=== PATIENT | female | born 1960 | race African-American/Black ===

== ENCOUNTER 2016-07-04 15:37 | Emergency (ER) | payer OTHER ==
[~2016-07-04] VITALS: Ht 162.6 cm; Wt 81.6 kg
[2016-07-04 16:03] VITALS: BP 146/81
[2016-07-04] MEDS ORDERED: Ketorolac 60mg Inj IM ONE (16:30)
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
[2016-07-04] MEDS ORDERED: CYCLOBENZAPRINE10 MG ORAL (17:33)
[2016-07-04] MEDS ORDERED: IBUPROFEN600 MG ORAL (17:33)
[2016-07-04 17:51] VITALS: BP 146/81
--- NOTE | 2016-07-05 12:00 | Diagnostic Imaging Report ---
Indication: Back pain Comparison: None Findings: 3 views of the lumbar spine were obtained. Multilevel narrowing of intervertebral disks and associated endplate and Facet osteophytes are present. No malalignment identified. No acute fracture definitely seen. Impression: Moderate spondylosis. No acute injury appreciated.
--- NOTE | 2016-07-05 12:01 | Diagnostic Imaging Report ---
Indication: Neck Pain Findings: 3 views of the cervical spine were obtained. Mild degenerative changes of the cervical spine are demonstrated especially at the levels of C4-5, C5-6, C6-7. This is characterized by vertebral endplate osteophyte formation and narrowing of intervertebral discs. There is no acute fracture identified. Alignment is normal. The open-mouth odontoid view shows an intact dens and good alignment of the lateral masses with respect to the body of C2. There is no soft tissue swelling. Impression: Mild spondylosis
== END 2016-07-04 17:51 | disposition home or self-care (01) ==
LOC: EMR 16:30
DX: M62.838 Other muscle spasm (principal); M62.830 Muscle spasm of back; M47.812 Spondylosis without myelopathy or radiculopathy, cervical region; M47.816 Spondylosis without myelopathy or radiculopathy, lumbar region; I10 Essential (primary) hypertension; V43.62XA Car passenger injured in collision with other type car in traffic accident, initial encounter; Y92.410 Unspecified street and highway as the place of occurrence of the external cause
CPT/HCPCS: 72020; 72050; 96372; 99283